=== PATIENT | male | born 1995 | race Caucasian/White ===

== ENCOUNTER → 2024-07-05 | Outpatient (CLI) | payer BC ==
[~2024-07-05] MED LIST: ALBU90I INH; ALBU90OI; ALBU90OI INH; ALBU90OI61 INH; ALBUIS IH; AZIT250 PO; CRUTCH4 USE; HYDACE5 PO; HYDACE5325 PO; HYDHCL25 PO; Imitrex25 MG PO; LORA10ER; Norco 5-325 Ta1 EACH PO; Permethrin60 GM TP; QVAR; RXALBOI INH; SUMA25 PO
== END ==
LOC: LAB 12:15 → LAB SHORT 12:15
DX: K13.0 Diseases of lips (principal)
CPT/HCPCS: 87070; 87205